=== PATIENT | male | born 2000 | race Caucasian/White ===

== ENCOUNTER 2025-07-26 10:42 | Emergency (ER) | payer OTHER ==
[~2025-07-26] VITALS: Ht 190.5 cm; Wt 208.7 kg
[2025-07-26 11:27] LABS: BASOPHILS ABSOLUTE AUTO 0.05 K/mm3 (0.00-0.23); BASOPHILS PERCENT AUTO 0 % (0-2); EOSINOPHILS ABSOLUTE AUTO 0.12 K/mm3 (0.00-0.68); EOSINOPHILS PERCENT AUTO 1 % (0-6); Hematocrit 42.5 % (37.0-53.0); Hemoglobin 14.6 g/dL (13.5-17.5); IMMATURE GRAN ABSOLUTE AUTO 0.20 K/mm3 (0.00-0.10); IMMATURE GRAN PERCENT AUTO 2 % (0-1); LYMPHOCYTES ABSOLUTE AUTO 2.03 K/mm3 (0.84-5.20); LYMPHOCYTES PERCENT AUTO 15 % (21-46); MONOCYTES ABSOLUTE AUTO 1.06 K/mm3 (0.16-1.47); MONOCYTES PERCENT AUTO 8 % (4-13); Mean Corpuscular HGB Conc 34.4 g/dL (31.5-36.5); Mean Corpuscular Volume 84 fL (80-100); NEUTROPHILS ABSOLUTE AUTO 10.31 K/mm3 (1.96-9.15); NEUTROPHILS PERCENT AUTO 75 % (41-73); NRBC ABSOLUTE 0.00 K/mm3 (0.00-0.02); NRBC Auto 0.0 /100 WBC (0.0-0.2); Platelet Count 314 K/mm3 (150-400); RDW Coefficient Variation 13.5 % (11.7-14.2); RDW Standard Deviation 41.4 fL (35.1-46.3)
[2025-07-26 11:55] LABS: Alanine Aminotransfer (ALT/SGP 45.0 U/L (12-78); Albumin, Blood 3.7 g/dL (3.4-5.0); Albumin/Globulin Ratio 0.8 (0.8-1.8); Anion Gap 11.0 mmol/L (3-11); Aspartate Aminotrans (AST/SGOT 12.0 U/L (12-37); Bilirubin, Total 1.0 mg/dL (0.1-1.0); Blood Urea Nitrogen 10.0 mg/dL (8-24); CO2, Blood 26.0 mmol/L (21-32); Calcium, Blood 9.0 mg/dL (8.5-10.1); Chloride, Blood 101.0 mmol/L (98-108); Creatinine, Blood 0.78 mg/dL (0.60-1.20); Globulin, Blood 4.4 g/dL (2.2-4.0); Glucose, Blood 104.0 mg/dL (70-99); Potassium, Blood 4.0 mmol/L (3.5-5.5); Sodium, Blood 134.0 mmol/L (136-145); Total Protein, Blood 8.1 g/dL (6.4-8.2)
[2025-07-26] MEDS ORDERED: Piperacillin/Tazobactam Sod 3.375 GM in NS 100 ML IV ONE (12:25)
[2025-07-26] MEDS ORDERED: NS 1,000 ML IV SCH (13:50)
[2025-07-26] MEDS ORDERED: Dexamethasone Sod Phos 10 MG/ML 1ML VIAL IV ONE (13:55)
[2025-07-26] MEDS ORDERED: Benzocaine Oral Spray 0.5ML UD MT ONE ×2 (14:25→17:00)
[2025-07-26] MEDS ORDERED: Lidocaine HCl 4% 5 ML SDA INH ONE (14:25)
[2025-07-26] MEDS ORDERED: Diazepam 5 MG / ML 2ML SYR IV ONE (15:25)
[2025-07-26] MEDS ORDERED: Ondansetron HCl 2 MG / ML 2ML Vial ONE (16:24)
[2025-07-26] MEDS ORDERED: Ondansetron HCl 2 MG / ML 2ML Vial IV ONE (16:35)
[2025-07-26] MEDS ORDERED: AMOCLA875 PO (17:38)
== END 2025-07-26 17:57 | disposition home or self-care (01) ==
LOC: ER 10:42
PROVIDERS: Student in an Organized Health Care Education/Training Program
DX: A41.9 Sepsis, unspecified organism (principal); J36 Peritonsillar abscess
CPT/HCPCS: 10160; 36415; 70491; 80053; 83605; 85025; 96365-59; 96375-59; 99284-25; A9270; J1100; J2003; J2405; J2543; J3360; J7030; Q9967

== ENCOUNTER 2025-07-28 15:17 | Inpatient (IN) | payer OTHER ==
[~2025-07-28] VITALS: Ht 190.5 cm; Wt 201.3 kg
[~2025-07-28 15:17] MED LIST: AMOCLA875 PO
[2025-07-28] MEDS ORDERED: Dexamethasone Sod Phos 10 MG/ML 1ML VIAL PO ONE (15:30)
[2025-07-28] MEDS ORDERED: Ampicillin Sod/Sulbactam Sod 3 GM in NS 100 ML IV ONE (15:35)
[2025-07-28] MEDS ORDERED: Ketorolac Tromethamine 15mg Vial IV ONE (15:40)
[2025-07-28] MEDS ORDERED: Dexamethasone Sod Phos 10 MG/ML 1ML VIAL IV ONE (15:40)
[2025-07-28] MEDS ORDERED: Lidocaine HCl 4% 5 ML SDA INH ONE ×2 (15:45→17:25)
[2025-07-28] MEDS ORDERED: Benzocaine Oral Spray 0.5ML UD MT ONE (15:45)
[2025-07-28] MEDS ORDERED: NS 1,000 ML IV SCH ×2 (15:45→23:50)
[2025-07-28 15:50] LABS: BASOPHILS ABSOLUTE AUTO 0.11 K/mm3 (0.00-0.23); BASOPHILS PERCENT AUTO 1 % (0-2); EOSINOPHILS ABSOLUTE AUTO 0.21 K/mm3 (0.00-0.68); EOSINOPHILS PERCENT AUTO 1 % (0-6); Hematocrit 45.7 % (37.0-53.0); Hemoglobin 15.5 g/dL (13.5-17.5); IMMATURE GRAN ABSOLUTE AUTO 0.33 K/mm3 (0.00-0.10); IMMATURE GRAN PERCENT AUTO 2 % (0-1); LYMPHOCYTES ABSOLUTE AUTO 2.77 K/mm3 (0.84-5.20); LYMPHOCYTES PERCENT AUTO 17 % (21-46); MONOCYTES ABSOLUTE AUTO 0.94 K/mm3 (0.16-1.47); MONOCYTES PERCENT AUTO 6 % (4-13); Mean Corpuscular HGB Conc 33.9 g/dL (31.5-36.5); Mean Corpuscular Volume 83 fL (80-100); NEUTROPHILS ABSOLUTE AUTO 11.70 K/mm3 (1.96-9.15); NEUTROPHILS PERCENT AUTO 73 % (41-73); NRBC ABSOLUTE 0.00 K/mm3 (0.00-0.02); NRBC Auto 0.0 /100 WBC (0.0-0.2); Platelet Count 387 K/mm3 (150-400); RDW Coefficient Variation 13.8 % (11.7-14.2); RDW Standard Deviation 41.9 fL (35.1-46.3)
[2025-07-28] MEDS ORDERED: Glycopyrrolate 0.2 MG/ML 1MLVIAL IV ONE (16:00)
[2025-07-28] MEDS ORDERED: Morphine Sulfate 4 MG/1 ML Injection IV ONE (16:00)
[2025-07-28 16:08] LABS: Alanine Aminotransfer (ALT/SGP 63.0 U/L (12-78); Albumin, Blood 3.6 g/dL (3.4-5.0); Albumin/Globulin Ratio 0.8 (0.8-1.8); Anion Gap 10.0 mmol/L (3-11); Aspartate Aminotrans (AST/SGOT 29.0 U/L (12-37); Bilirubin, Total 1.3 mg/dL (0.1-1.0); Blood Urea Nitrogen 16.0 mg/dL (8-24); CO2, Blood 25.0 mmol/L (21-32); Calcium, Blood 9.7 mg/dL (8.5-10.1); Chloride, Blood 105.0 mmol/L (98-108); Creatinine, Blood 0.83 mg/dL (0.60-1.20); Globulin, Blood 4.6 g/dL (2.2-4.0); Glucose, Blood 106.0 mg/dL (70-99); Potassium, Blood 3.9 mmol/L (3.5-5.5); Sodium, Blood 136.0 mmol/L (136-145); Total Protein, Blood 8.2 g/dL (6.4-8.2)
[2025-07-28] MEDS ORDERED: LORazepam 2 MG/ML 1ML Injection IV ONE (16:55)
[2025-07-28] MEDS ORDERED: FLU VACC TS2025-26(6MOS UP)/PF 45 MCG/0.5 ML SYRINGE IM SCH (23:50)
[2025-07-29] VITALS (11 sets, daily range): BP systolic 137–161; BP diastolic 80–115
[2025-07-29] MEDS ORDERED: Ampicillin Sod/Sulbactam Sod 3 GM in NS 100 ML IV SCH
[2025-07-29 00:13] LABS: pH Blood Venous 7.37 (7.34-7.37)
[2025-07-29 03:28] LABS: BASOPHILS ABSOLUTE AUTO 0.05 K/mm3 (0.00-0.23); BASOPHILS PERCENT AUTO 1 % (0-2); EOSINOPHILS ABSOLUTE AUTO 0.01 K/mm3 (0.00-0.68); EOSINOPHILS PERCENT AUTO 0 % (0-6); Hematocrit 46.8 % (37.0-53.0); Hemoglobin 15.2 g/dL (13.5-17.5); IMMATURE GRAN ABSOLUTE AUTO 0.23 K/mm3 (0.00-0.10); IMMATURE GRAN PERCENT AUTO 2 % (0-1); LYMPHOCYTES ABSOLUTE AUTO 1.49 K/mm3 (0.84-5.20); LYMPHOCYTES PERCENT AUTO 14 % (21-46); MONOCYTES ABSOLUTE AUTO 0.34 K/mm3 (0.16-1.47); MONOCYTES PERCENT AUTO 3 % (4-13); Mean Corpuscular HGB Conc 32.5 g/dL (31.5-36.5); NEUTROPHILS ABSOLUTE AUTO 8.44 K/mm3 (1.96-9.15); NEUTROPHILS PERCENT AUTO 80 % (41-73); NRBC ABSOLUTE 0.00 K/mm3 (0.00-0.02); NRBC Auto 0.0 /100 WBC (0.0-0.2); Platelet Count 265 K/mm3 (150-400); RDW Coefficient Variation 14.0 % (11.7-14.2); RDW Standard Deviation 45.1 fL (35.1-46.3)
[2025-07-29 03:29] LABS: Mean Corpuscular Volume 89 fL (80-100)
[2025-07-29 03:48] LABS: Alanine Aminotransfer (ALT/SGP 58.0 U/L (12-78); Albumin, Blood 3.2 g/dL (3.4-5.0); Albumin/Globulin Ratio 0.7 (0.8-1.8); Anion Gap 9.0 mmol/L (3-11); Aspartate Aminotrans (AST/SGOT 25.0 U/L (12-37); Bilirubin, Total 0.9 mg/dL (0.1-1.0); Blood Urea Nitrogen 19.0 mg/dL (8-24); CO2, Blood 24.0 mmol/L (21-32); Calcium, Blood 9.1 mg/dL (8.5-10.1); Chloride, Blood 108.0 mmol/L (98-108); Creatinine, Blood 0.71 mg/dL (0.60-1.20); Globulin, Blood 4.6 g/dL (2.2-4.0); Glucose, Blood 111.0 mg/dL (70-99); Potassium, Blood 4.4 mmol/L (3.5-5.5); Sodium, Blood 137.0 mmol/L (136-145); Total Protein, Blood 7.8 g/dL (6.4-8.2)
[2025-07-29] MEDS ORDERED: Lactobacil 2-S.Thermo-Bifido 1 1 Cap PO SCH (09:00)
--- NOTE | 2025-07-29 17:43 | NUR ---
SHIFT SUMMARY PT AWAKE AT TIME OF BEDSIDE REPORT W/ NOC RN. PT A/OX4, ABLE TO MOVE ALL EXTREMITIES SPONTANEOUSLY, AND CALL APPROPRIATELY. PT SATURATING >95% ON RA WHILE AWAKE, DID REQUIRE BIPAP WHILE ASLEEP. LUNGS CLEAR T/O MARVIN, NO STRIDOR NOTED BUT DIMINISHED AIRFLOW TO RIGHT SIDE OF NECK W/ AUSCULTATION. NSR ON MONITOR, SINUS TACHY W/ EXERTION. CAP REFILL<3 SEC, NO NOTED EDEMA. BOWEL SOUNDS ACTIVE AND ABD SOFT/NONTENDER. PT CONTINENT OF BOWEL/BLADDER. SKIN INTACT AND W/O BREAKDOWN. PT AMBULATED BARBER THIS AFTERNOON, TOLERATED WELL W/ MINIMAL ASSISTANCE FOR CORD MANAGEMENT. PT TOLERATED CLEAR LIQUID DIET WELL, NO COMPLICATIONS W/ SWALLOWING NOTED. ACCESS: RFA PIV, LAC PIV
--- NOTE | 2025-07-29 20:28 | NUR ---
ASSUMPTION OF CARE: ASSUMED CARE AT START OF SHIFT (1899). REPORT RECEIVED FROM DAY SHIFT RN. PT IS DOING WELL AND RESTING IN CHAIR. PT IS ALERT AND FOLLOWING COMMANDS. PT DENIES ANY PAIN, CP, OR SOB AT THIS TIME. LUNG SOUNDS ARE CLEAR AND EQUAL BILATERALLY, ON RA WITH SPO2 >95%. SINUS RYTHM, BP AND HR HAVE BEEN STABLE. IV: LAC AND R FOREARM. PT IS ABLE TO AMBULATE AND USE TOILET VIA STANDBY ASSIST. LINES AND CORDS PLACED OUT OF REACH. CALLL LIGHT PLACED WITHIN REACH.
[2025-07-30 03:43] LABS: Hematocrit 39.6 % (37.0-53.0); Hemoglobin 13.4 g/dL (13.5-17.5); Mean Corpuscular HGB Conc 33.8 g/dL (31.5-36.5); Mean Corpuscular Volume 84 fL (80-100); NRBC ABSOLUTE 0.00 K/mm3 (0.00-0.02); NRBC Auto 0.0 /100 WBC (0.0-0.2); Platelet Count 294 K/mm3 (150-400); RDW Coefficient Variation 13.5 % (11.7-14.2); RDW Standard Deviation 41.7 fL (35.1-46.3)
[2025-07-30 04:00] VITALS: BP 161/109
[2025-07-30 04:01] LABS: Anion Gap 7.0 mmol/L (3-11); Blood Urea Nitrogen 19.0 mg/dL (8-24); CO2, Blood 28.0 mmol/L (21-32); Calcium, Blood 9.2 mg/dL (8.5-10.1); Chloride, Blood 108.0 mmol/L (98-108); Creatinine, Blood 0.67 mg/dL (0.60-1.20); Glucose, Blood 141.0 mg/dL (70-99); Potassium, Blood 4.7 mmol/L (3.5-5.5); Sodium, Blood 138.0 mmol/L (136-145)
--- NOTE | 2025-07-30 06:09 | NUR ---
SHIFT SUMMARY: PT IS DOING WELL AND RESTING IN BED. NO ACUTE CHANGES THROUGHOUT THE SHIFT. PT WAS ABLE TO SLEEP MOST OF THE NIGHT. PT WAS PLACED ON CPAP WHILE SLEEPING. VITAL SIGNS REMAINED STABLE THROUGHTOUT THE SHIFT. PT IS ABLE TO AMBULATE AND PERFORM ADL'S WITH MINIMAL ASSISTANCE. LINES AND CORDS PLACED OUT OF REACH. CALL LIGHT PLACED WITHIN REACH.
[2025-07-30 08:11] VITALS: BP 151/129
[2025-07-30 08:48] VITALS: BP 169/112
[2025-07-30 12:17] VITALS: BP 158/114
[2025-07-30] MEDS ORDERED: Enoxaparin 40 MG/0.4 ML SYR SC SCH (12:19)
[2025-07-30] MEDS ORDERED: VISBIOME 112.51 EACH PO (13:29)
[2025-07-30 13:56] VITALS: BP 162/110
--- NOTE | 2025-07-30 14:25 | NUR ---
SUMMARY AND DISCHARGE PT AWAKE IN BED AT TIME OF BEDSIDE REPORT W/ NOC RN. PT A/OX4, MOVES ALL EXTREMITIES SPONTANEOUSLY, AND CALLS APPROPRIATELY. PT DENIES ANY PAIN. SATURATING >95% ON RA, LUNG SOUNDS CLEAR T/O MARVIN, DIM AT BASES. NECK AUSCULTATION CLEAR BILATERALLY, NO STRIDOR NOTED. NSR ON MONITOR, CAP REFILL<3 SEC, AND NO NOTED EDEMA. ABD SOFT AND NONTENDER, PT TOLERATING DIET OF CLEAR LIQUIDS, ABLE TO ADVANCE TO REGULAR. PT CONTINENT OF BOWEL AND BLADDER. SKIN INTACT AND W/O BREAKDOWN. PT GIVEN DISCHARGE PAPERWORK AND EXPRESSED UNDERSTANDING TO INSTRUCTIONS/FOLLOW-UP CARE. PT ESCORTED TO POV W/ ALL POSESSIONS IN HAND.
[2025-07-31] MEDS ORDERED: Pantoprazole Sodium 40 MG Injection IV SCH (06:00)
== END 2025-07-30 14:07 | disposition home or self-care (01) | DRG 854 ==
LOC: ER 15:17 → ICUE 23:35 → PCU 23:35 → ICUE 07-29 01:45
PROVIDERS: Internal Medicine; Student in an Organized Health Care Education/Training Program; ADMIT Internal Medicine
PROC: 0C9PXZZ Drainage of Tonsils, External Approach (ICD-10-PCS; 2025-07-28)
PROC: 3E03329 Introduction of Other Anti-infective into Peripheral Vein, Percutaneous Approach (ICD-10-PCS; principal; 2025-07-29)
PROC: 5A09357 Assistance with Respiratory Ventilation, Less than 24 Consecutive Hours, Continuous Positive Airway Pressure (ICD-10-PCS; 2025-07-29)
DX: A40.9 Streptococcal sepsis, unspecified (principal); B00.2 Herpesviral gingivostomatitis and pharyngotonsillitis; J36 Peritonsillar abscess; G47.33 Obstructive sleep apnea (adult) (pediatric)
CPT/HCPCS: 10160; 36415; 42700; 70491; 80048; 80053; 82803; 83605; 85025; 85027; 87040; 87430; 93005; 93010; 94660; 94762; 96365-59; 96375-59; 99284-25; 99285-25; A9270; J0295; J1100; J1650; J1885; J2003; J2060; J2270; J2405; J2543; J2919; J3360; J7030; Q9967

== ENCOUNTER 2025-10-15 09:00 | Emergency (ER) | payer OTHER ==
[~2025-10-15] VITALS: Ht 190.5 cm; Wt 195.0 kg
[~2025-10-15 09:00] MED LIST changes: +VISBIOME 112.51 EACH PO
[2025-10-15] MEDS ORDERED: CEPH500 PO (09:23)
== END 2025-10-15 09:42 | disposition home or self-care (01) ==
LOC: ER 09:00
DX: L03.213 Periorbital cellulitis (principal); Z88.7 Allergy status to serum and vaccine; Z79.899 Other long term (current) drug therapy
CPT/HCPCS: 99283